=== PATIENT | male | born 1945 | race Caucasian/White ===

== ENCOUNTER 2019-01-20 11:40 | Emergency (ER) | payer MEDICARE ==
[~2019-01-20] VITALS: Ht 165.1 cm; Wt 85.0 kg
[2019-01-20] MEDS ORDERED: SODIUM CHLORIDE 0.9% 1,000 ML IV ONE (13:09)
[2019-01-20] MEDS ORDERED: HYDROCODONE/ACETAMINOPHEN 5/325MG TABLET PO ONE (13:15)
[2019-01-20] MEDS ORDERED: BACITRACIN ZINC OINT UDPKT TOP ONE (13:15)
[2019-01-20] MEDS ORDERED: TETANUS, DIPHTHERIA, PERTUSSIS VAC/PF 0.5ML (>7YR OLD) IM ONE (13:15)
[2019-01-20] MEDS ORDERED: LIDOCAINE HCL/PF 1% 10 MG/ML 5ML VIAL IJ ONE (13:15)
[2019-01-20 13:53] LABS: BASOPHILS % 0.5 % (0.0-2.0); EOSINOPHILS % 0.9 % (0.0-5.0); HEMATOCRIT. 42.2 % (42.0-52.0); HEMOGLOBIN. 14.3 g/dL (14.0-18.0); LYMPHOCYTES % 12.6 % (20.0-50.0); MEAN CORPUSCULAR HEMOGLOBIN 30.1 pg (28.0-32.0); MEAN CORPUSCULAR VOLUME 88.4 fL (80.0-94.0); MEAN PLATELET VOLUME 7.1 fl (7.4-10.4); MONOCYTES % 7.4 % (2.0-8.0); NEUTROPHILS % 78.6 % (40.0-76.0); PLATELET 246 x1000/uL (130-400); RED BLOOD CELL COUNT 4.77 mill/uL (4.7-6.1); RED CELL DISTRIBUTION WIDTH 13.8 % (11.6-14.6)
[2019-01-20 13:56] LABS: CHLORIDE 101 mEq/L (98-107)
[2019-01-20 14:03] LABS: PROTHROMBIN TIME 10.3 sec (9.1-11.1)
[2019-01-20 16:38] VITALS: BP 135/78
== END 2019-01-20 16:52 | disposition home or self-care (01) ==
LOC: ER 11:40
DX: S02.40FB Zygomatic fracture, left side, initial encounter for open fracture (principal); S20.212A Contusion of left front wall of thorax, initial encounter; V78.1XXA Passenger on bus injured in noncollision transport accident in nontraffic accident, initial encounter; Y93.89 Activity, other specified; Y92.410 Unspecified street and highway as the place of occurrence of the external cause; Z23 Encounter for immunization; G31.9 Degenerative disease of nervous system, unspecified; R03.0 Elevated blood-pressure reading, without diagnosis of hypertension
CPT/HCPCS: 36415; 70450; 70486; 71101; 80053; 84484; 85025; 85610; 90471; 90715; 93005; 99284; J7030; J3490